=== PATIENT | male | born 1965 | race Caucasian/White ===

== ENCOUNTER 2023-03-12 11:03 | Outpatient (CLI) | payer OTHER, SELFPAY ==
--- NOTE | ~2023-03-12 | XR_ITS ---
XR thoracic spine 3V DATE: 03/12/2023 11:40 INDICATION: Thoracic radicular pain TECHNIQUE: AP and lateral views COMPARISON: None FINDINGS: There is mild thoracic dextroscoliosis. There is moderate degenerative spurring of the thoracic spine. No fracture or dislocation or bone jeffry truction is detected. The thoracic pedicles are intact. No paraspinal soft tissue thickening. Surgical clips, right upper quadrant, consistent with cholecystectomy IMPRESSION: Mild thoracic dextro scoliosis Moderate degenerative spurring of the thoracic spine Reviewed, dictated and finalized at location [facility].
--- NOTE | ~2023-03-12 | XR_ITS ---
XR chest 2V DATE: 03/12/2023 11:40 INDICATION: Shortness of breath on inspiration TECHNIQUE: PA and lateral views COMPARISON: None FINDINGS: Normal heart size. No hilar or mediastinal enlargement. No pulmonary infiltrate or consol idation, pulmonary vascular congestion or pleural effusion or pneumothorax. Status post cholecystectomy. Degenerative spurring of the thoracic spine. IMPRESSION: No active cardiopulmonary disease Reviewed, dictated and finalized at location [facility].
== END 2023-03-12 11:04 | disposition home or self-care (01) ==
PROVIDERS: PCP Internal Medicine; Visit Provider Physician Assistant
DX: M54.14 Radiculopathy, thoracic region (principal)
CPT/HCPCS: 71046; 72072

== ENCOUNTER 2024-09-19 11:15 | Outpatient (CLI) | payer OTHER, SELFPAY ==
--- NOTE | ~2024-09-19 | CT_ITS ---
EXAMINATION: CT soft tissue neck w con DATE: 09/19/2024 11:47 INDICATION: Anterior auricular lymphadenopathy. TECHNIQUE: Computed tomography (CT) of the neck was performed with 75 mL Omnipaque-350 intravenous co ntrast. Automated exposure control and iterative reconstruction technique were employed. The dose-negra gth product was 401.31 mGy-cm. COMPARISON: None FINDINGS: There is asymmetric severe fatty atrophy of the left parotid gland. There are no pathologic ally enlarged lymph nodes. There is mild plaque in the proximal internal carotid arteries with 0% jones nosis relative to normal distal artery lumen diameters. There is mild mucosal thickening in the paran dave sinuses. The mastoid air cells are normal. There is severe cervical spondylosis. IMPRESSION: 1. No lymphadenopathy. Reviewed, dictated and finalized at location [facility]. [facility] IMPRESSION: 1. No lymphadenopathy.
[2024-09-19 11:38] LABS: Estimated Glomerular Filt Rate > 60
== END 2024-09-19 11:16 | disposition home or self-care (01) ==
LOC: MICIMG 11:16
PROVIDERS: PCP Physician Assistant; Visit Provider Physician Assistant
DX: R59.0 Localized enlarged lymph nodes (principal)
CPT/HCPCS: 70491; Q9967

== ENCOUNTER 2025-02-16 08:00 | Outpatient (RCR) | payer OTHER, SELFPAY ==
--- NOTE | 2024-12-08 10:45 | OPREHPOC ---
Outpatient Therapy Plan of Care This is a Multidisciplinary Plan of Care that may contain components documented by all disciplines (PT, OT, and ST.) PT Problem 1 PT Problem #1 Knowledge Deficit PT Goal 1 Goal / Goal Update [place] with HEP Target Visit 4 PT Goal 2 Goal / Goal Update Report no pain greater than 2/10 for 2 consecutive weeks Target Visit 8 PT Problem 2 PT Problem #2 Impaired Range of Motion PT Goal 1 Goal / Goal Update 1. Improve misti hip abduction ROM to 40 degrees to reduce hip functional restriction 2. Improve misti hip piriformis restriction to minimal to improve functional rotation motion Target Visit 8 PT Problem 3 PT Problem #3 Impaired Strength PT Goal 1 Goal / Goal Update 1. Improve misti hip flexion to 4+/5 to improve foot clearance and anterior pelvic stability 2. Improve misti hip abduction strength to 4+/5 to improve lateral pelvic stability for gait and functional mobility improvement Target Visit 8
--- NOTE | 2024-12-08 10:46 | PTOPEVAL1 ---
Assessment and note entered by Daniel Diaz, PT Evaluation Information Assessment Status Evaluation Diagnosis Chronic low back pain ICD-10 Condition Codes (PT) Pain in low back M54.50 Onset Subjective Information Reports history of back trauma and fusion in 2010. He does not have radicular symptoms at this time but has in the past. Most of his pain comes with bending or sitting for a long time. Does much better with varied movement. L4-S1 fusion is present. 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 Also having some issues with cervical spine and upper back. Reported Pain Level Pain Score 4: Self Report Assessment PT Clinical Summary Patient presents with sings and symptoms consistent with lumbar stenosis and degenerative disc agitation. Showing poor hip mobility and stabilization in combination with poor thoracic mobility and lumbar stability. Will benefit from skilled therapy to address these deficits for half-way improved function and reduced pain. Plan of Care Interventions Electrical Stimulation,Gait Training,Manual Therapy,Neuro Re-education,Therapeutic Activities, Therapeutic Exercise PT Services Indicated Yes Treatment Frequency and 2x/week for 8 visits Duration These treatments will address the objective and functional deficits as defined above. The patient will be advanced safely and appropriately in order for the patient to progress towards his/her prior level of function. Additional exercises will be introduced and as well as a comprehensive home exercise program upon discharge, if needed, ?to ensure carryover of functional gains achieved in the clinic. This treatment plan has been reviewed and agreement upon by the patient.
--- NOTE | 2025-01-05 09:23 | PTOPPROG ---
Assessment and note entered by Daniel Diaz, PT Evaluation Information Assessment Status Progress Diagnosis Chronic low back pain ICD-10 Condition Codes (PT) Pain in low back M54.50 Onset Subjective Information Reports that he feels in the past 4 weeks his movement has improved and he has better baseline movement. Reports that regardless of this he feels that the frequency and intensity of his pain is still the same including laying down at night. Does not feel there has been a big strength improvement. Feels that the regiment of therapy has really helped and he would like to continue it . Assessment PT Clinical Summary Patient has shown objective progress in both strength and ROM of targeted measures. With this kinesiological improvement we have not seen significant subjective improvement. Overall he has shown movement benefit and demonstrates better understanding of activity promotion and avoidance. Will continue to benefit from skilled therapy to work towards goals and address pain. I do believe that at this time with the objective progress and lack of correlated pain relief that it would be in patients best interest to receive updated imaging since he has not had updated radiographs since 2010 per report. May also benefit from potential of spinal injection to juvenile court judge response to anti- inflammatory. Plan of Care Interventions Electrical Stimulation,Gait Training,Manual Therapy,Neuro Re-education,Therapeutic Activities, Therapeutic Exercise PT Services Indicated Yes Treatment Frequency and 1-2x/week for 8 visits Duration These treatments will address the objective and functional deficits as defined above. The patient will be advanced safely and appropriately in order for the patient to progress towards his/her prior level of function. Additional exercises will be introduced and as well as a comprehensive home exercise program upon discharge, if needed, ?to ensure carryover of functional gains achieved in the clinic. This treatment plan has been reviewed and agreement upon by the patient.
--- NOTE | 2025-02-16 09:51 | OPREHPOC ---
Outpatient Therapy Plan of Care This is a Multidisciplinary Plan of Care that may contain components documented by all disciplines (PT, OT, and ST.) PT Problem 1 PT Problem #1 Knowledge Deficit PT Goal 1 Goal / Goal Update [place] with HEP Target Visit 4 Progress Met PT Goal 2 Goal / Goal Update Report no pain greater than 2/10 for 2 consecutive weeks Target Visit 16 Progress Not Met PT Problem 2 PT Problem #2 Impaired Range of Motion PT Goal 1 Goal / Goal Update 1. Improve misti hip abduction ROM to 40 degrees to reduce hip functional restriction 2. Improve misti hip piriformis restriction to minimal to improve functional rotation motion Target Visit 16 Progress Met PT Problem 3 PT Problem #3 Impaired Strength PT Goal 1 Goal / Goal Update 1. Improve misti hip flexion to 4+/5 to improve foot clearance and anterior pelvic stability 2. Improve misti hip abduction strength to 4+/5 to improve lateral pelvic stability for gait and functional mobility improvement Target Visit 16 Progress Partially Met
--- NOTE | 2025-02-16 09:51 | PTOPDC ---
Assessment and note entered by Daniel Diaz, PT Evaluation Information Assessment Status Discharge Diagnosis Chronic low back pain ICD-10 Condition Codes (PT) Pain in low back M54.50 Onset Subjective Information Reports that overall he continues to have majority of days where he is about a 3/10 pain. He has not had a pain free day in quite a while. He is still painful on days where he has a little more activity the day prior. Reports that therapy has helped but it does not seem to have made the pain go away. Patient plans to continue with exercise and pursue imaging at this time. Reported Pain Level Pain Score 3: Self Report Assessment PT Clinical Summary Patient has overall presented with improved objective measures seeing improvement in hip mobility and strength. There has not been a significant improvement in pain symptoms correlating to this motion and stability. I discussed with patient pursuing radiographic imaging to assess structural integrity of non fused lumbar spine to assess for possible structural limitations to progressive recovery. Patient in agreement and will continue HEP and discharge at this time. Plan of Care PT Services Indicated Yes
== END 2025-02-16 13:56 | disposition home or self-care (01) ==
LOC: ANHPT 08:00
PROVIDERS: PCP Physician Assistant; Visit Provider Physician Assistant
DX: M54.50 Low back pain, unspecified (principal)
CPT/HCPCS: 97014; 97110; 97140; 97161; G0283

== ENCOUNTER 2025-03-24 09:38 | Outpatient (CLI) | payer OTHER, SELFPAY ==
--- NOTE | ~2025-03-24 | MR_ITS ---
MRI of the lumbar spine Clinical History: Other postprocedural state Technique: Axial T2-weighted images, and sagittal T1-weighted, T2-weighted, and STIR images were acqu ired. Findings: There is anterior fusion from L3 through S1. No fracture evident. There is 2 mm retrolisthe sis of L2 over L3. There are reactive Modic signal changes about the L2-L3 disc space. At L1-L2, there is moderate degenerative distended. There is minimal disc bulge with moderate facet a rthropathy. No central canal stenosis. There is mild right neural foraminal narrowing. Left neural fo ramen intact. At L2-L3, there is severe degenerative disc narrowing. There is diffuse disc bulge with severe facet arthropathy. There is mild central canal stenosis. There is severe right neural foraminal narrowing, and advanced left neural foraminal narrowing. At L3-L4, there is no disc bulge or herniation. There is facet arthropathy/effusion. No spinal canal stenosis. There is moderate bilateral neural foraminal narrowing. At L4-L5, there is no disc bulge or herniation. There is facet joint effusion. No spinal canal stenos is. There is severe right neural foraminal narrowing. Probable mild or moderate left neural foraminal narrowing. At L5-S1, there is posterior decompression. No canal stenosis. Neural foramina are probably preserved . Paravertebral soft tissues are unremarkable, aside from expected postoperative change. Impression: Anterior fusion from L3 through S1. Advanced degenerative spondylosis at L2-L3, with 2 mm retrolisthesis at this level. Additional mild to moderate degenerative changes, as above. Reviewed, dictated and finalized at [facility]. Impression: Anterior fusion from L3 through S1. Advanced degenerative spondylosis at L2-L3, with 2 mm retrolisthesis at this le glory. Additional mild to moderate degenerative changes, as above.
== END 2025-03-24 09:39 | disposition home or self-care (01) ==
LOC: MICIMG 09:40
PROVIDERS: PCP Physician Assistant; Visit Provider Physician Assistant
DX: Z98.890 Other specified postprocedural states (principal); M47.896 Other spondylosis, lumbar region; Z98.1 Arthrodesis status; M51.369 Other intervertebral disc degeneration, lumbar region without mention of lumbar back pain or lower extremity pain
CPT/HCPCS: 72148